=== PATIENT | male | born 1980 | race Caucasian/White ===

== ENCOUNTER 2016-07-20 16:21 | Observation (INO) ==
--- NOTE | 2016-07-20 17:47 | Emergency Department Note ---
Disposition Clinical Impression: Bilateral pneumonia Disposition: Admitted As Inpatient Condition: Fair Referrals: Inna Castillo CNP [Primary Care Provider] - Forms: ED Satisfaction Letter Time of Disposition: 18:12 ([facility]) URI/Sore Throat HPI - General Chief Complaint: ED Upper Respiratory Infection Stated Complaint: chest congestion Time Seen by Provider: 07/20/16 16:24 Source: patient Mode of arrival: ambulatory Limitations: no limitations Nursing Notes Reviewed: Yes Vital Signs Reviewed: Yes - History of Present Illness HPI Narrative: Patient states she has been having fever chills cough congestion runny nose is been running low-grade fevers has not felt well and states he has been coughing horribly at night bringing up large amounts of phlegm states they have that he gets tired at work denies any apnea no cyanosis he denies any calf pain or tenderness noted he denies any prolonged sitting he denies any recent trauma to the legs as result patient is here after being seen at the local urgent care being sent up here for evaluation for possible pulmonary emboli Pt Subjective Complaint: fever, cough, flu symptoms, nasal congestion Onset (ago): day(s) (3-4) Duration: constant Severity: moderate Severity scale (1-10): 7 Improves with: nothing Worsens with: nothing If sputum, description: yellow, green Associated symptoms: Reports: fever, chills, myalgias, rhinorrhea, nasal congestion, cough, shortness of breath, nausea. Denies: voice changes, diaphoresis, headache, sore throat, stiff neck, chest pain, abdominal pain, vomiting, diarrhea, dysuria, rash, ear pain Treatments prior to arrival: acetaminophen, ibuprofen - Related Data Home Medications Medication Instructions Recorded Confirmed Citalopram [CeleXA] 10 mg PO DAILY 03/03/15 07/20/16 Lisinopril [Zestril] 2.5 mg PO DAILY 03/03/15 07/20/16 Rosuvastatin [Crestor] 10 mg PO HS 03/03/15 07/20/16 Insulin Glargine,Hum.rec.anlog 100 unit SQ DAILY 03/23/16 07/20/16 [Lantus Solostar] Pantoprazole Sodium [Protonix] 20 mg PO DAILY 03/23/16 07/20/16 Previous Rx's Medication Instructions Recorded GuaiFENesin/Dextromethorphan 5 ml PO Q6H PRN #120 ml 06/30/16 [Robitussin Cough-Chest Dm Liq] PredniSONE 20 mg PO BID #10 tablet 07/20/16 Allergies Allergy/AdvReac Type Severity Reaction Status Date / Time azithromycin Allergy Hives Verified 07/20/16 14:53 [From Zithromax Z-Jacob] All systems ED: reviewed and negative except as stated. Constitutional: Reports: fever, weakness. Denies: chills Eyes: Denies: eye pain ENT ED: Reports: congestion. Denies: ear pain, throat pain Cardiovascular: Reports: dyspnea on exertion. Denies: chest pain, palpitations Respiratory: Reports: cough, dyspnea, wheezes, sputum production Gastrointestinal: Denies: abdominal pain, nausea Genitourinary: Denies: urgency, dysuria, frequency Musculoskeletal: Reports: back pain Integumentary: Denies: rash, abrasion Neurological: Denies: headache, weakness Psychiatric: Denies: anxiety Endocrine: Denies: fatigue Hematological/Lymphatic: Denies: easy bleeding Allergic/Immunologic: Denies: facial swelling URI PMH - Past Medical History Medical history: Reports: diabetes, GERD, hyperlipidemia, hypertension, other Surgical history: Reports: no surgical history Psychiatric history: Reports: anxiety Family history: Reports: non-contributory - Social History Smoking Status: Never smoker Alcohol use: Reports: occasionally Drug use: Reports: none Physical Exam - General Limitations: no limitations General appearance: alert, in no apparent distress - Head Head exam: atraumatic, normocephalic, normal inspection - Eye Eye exam: Present: normal appearance, PERRL, EOMI - ENT ENT exam: normal exam, normal oropharynx, mucous membranes moist, TM's normal bilaterally, normal external ear exam - Neck Neck exam: Present: normal inspection, full ROM, trachea midline - Chest Chest inspection: Present: normal inspection, symmetric chest wall rise - Respiratory Respiratory exam: Present: wheezes, prolonged expiratory phase, other (rhonci) - Cardiovascular Cardiovascular exam: Present: regular rate, normal rhythm, normal heart sounds - Abdominal Exam Abdominal exam: Present: soft, Non-Tender, normal bowel sounds. Absent: mass, pulsatile mass - Expanded Upper Extremity Exam Shoulder exam: Present: normal inspection, full ROM Arm exam: Present: normal inspection, full ROM Elbow exam: Present: normal inspection, full ROM Forearm/Wrist exam: Present: normal inspection, full ROM Hand exam: Present: normal inspection, full ROM Vascular exam: Normal: capillary refill, radial pulse - Expanded Lower Extremity Exam Hip/Pelvis exam: Present: normal inspection, full ROM Upper leg exam: Present: normal inspection, full ROM Knee exam: Present: normal inspection, full ROM Lower leg exam: Present: normal inspection, full ROM Ankle exam: Present: normal inspection, full ROM Foot/toe exam: Present: normal inspection, full ROM Neurovascular/Tendon exam: Absent: motor deficit, sensory deficit, tendon deficit Gait: observed and normal - Back Exam Back exam: Present: normal inspection, full ROM. Absent: tenderness, muscle spasm - Neurological Exam Neurological exam: Present: alert, oriented X3, CN II-XII intact - Psychiatric Psychiatric exam: Present: normal affect, normal mood - Skin Skin exam: Present: warm, dry, intact, normal color Course Course Narrative: Patient was seen and examined patient appeared to be ill flushed about the face did not appear to be feeling well as a result he was sent up throughout the possibility of a pulmonary emboli from the urgent care but he tells me he has been running fevers cough congestion thick green phlegm having trouble breathing appear to be more consistent with a pneumonia CT was performed which shows bilateral lower lobe blood cultures antibodies were started patient is admitted transferred to [facility] service of Dr. Torres stable Vital Signs Temperature 98 F 07/20/16 16:24 Pulse Rate 112 07/20/16 16:24 Respiratory Rate 16 07/20/16 16:24 Blood Pressure 125/75 07/20/16 16:24 O2 Sat by Pulse Oximetry 90 L 07/20/16 16:24 Temperature 98 F 07/20/16 16:24 Pulse Rate 112 07/20/16 16:24 Respiratory Rate 16 07/20/16 16:24 Blood Pressure 125/75 07/20/16 16:24 O2 Sat by Pulse Oximetry 90 L 07/20/16 16:24 Oxygen Delivery Oxygen Delivery Room Air Upper Respiratory Infection - Differential Diagnosis Differential Diagnosis: Likely: upper respiratory infection, other viral infection, influenza, pneumonia - Medical Records Medical records reviewed: Yes I reviewed the patient's medical records. - Radiology Data Radiology results reviewed: Yes I reviewed the patient's radiology results. ITS Impressions Chest CT 01/30/17 16:46 IMPRESSION: Bilateral lower lobe infiltrates consistent with pneumonia. No evidence of significant adenopathy. No evidence of pleural disease. D/ / Marylou Powers MD / Marylou Powers MD Interpreting Provider: Marylou Powers MD Critical Care Time Critical Care Time: No
[2016-07-20] MEDS ORDERED: 0.9 % Sodium Chloride 1,000 ML IVC SCH ×2 (18:15→19:42)
[2016-07-20] MEDS ORDERED: CefTRIAXone 1,000 MG in D5% in Water (Mini-Bag+) 100 ML IVPB ONE (18:15)
[2016-07-20] MEDS ORDERED: Ketorolac 30 MG/ML VIAL IV ONE (18:15)
[2016-07-20 18:42] LABS: INR 1.2
[2016-07-20 18:44] LABS: Activated Partial Thrombo Time 28.2 Seconds (26.0-36.0)
[2016-07-20 18:51] LABS: BUN/Creatinine Ratio 11 (6-26); Blood Urea Nitrogen 9 mg/dL (8-26); Carbon Dioxide 24 mEq/L (19-29); Chloride 99 mEq/L (98-109); Glucose 200 mg/dL (70-99); Osmolality,Calculated 286 (280-300); Potassium 4.2 mEq/L (3.5-4.5); Sodium 136 mEq/L (136-145); eGFR For African Americans > 60 (> 60); eGFR For Non-African Americans > 60 (> 60)
[2016-07-20 18:59] LABS: Basophils % 0.4 %; Eosinophils # 0.1 K/mcL (0.0-0.6); Eosinophils % 0.8 %; Hemoglobin 14.8 g/dL (12.9-16.9); Immature Granulocytes % 0.9 % (0-4); Lymphocytes # 1.4 K/mcL (0.6-4.6); Lymphocytes % 14.2 %; Mean Corpuscular HGB Conc 35.2 g/dL (31.6-35.5); Mean Corpuscular Hemoglobin 29.6 pg (28.0-33.3); Mean Platelet Volume 10.8 fL (9.4-12.4); Monocytes # 0.2 K/mcL (0.0-1.3); Monocytes % 2.4 %; Neutrophils # 7.8 K/mcL (1.6-8.9); Platelet Count 253 K/mcL (140-400); Segmented Neutrophils % 81.3 %
[2016-07-20] MEDS ORDERED: Levofloxacin 750 MG/150 ML 750 MG/150 ML BAG IVPB SCH (19:00)
[2016-07-20] MEDS ORDERED: *HR* Dextrose 50 % in Water (Syg) 50 ML SYRINGE IVP PRN (19:42)
[2016-07-20] MEDS ORDERED: Naloxone 0.4 MG/ML INJ IVP PRN (19:42)
[2016-07-20] MEDS ORDERED: HYDROcodone BIT/Homatropine LQ 5 MG/5 ML UDC PO PRN (19:42)
[2016-07-20] MEDS ORDERED: Dextrose Gel 15 GM PO PRN ×2 (19:42)
[2016-07-20] MEDS ORDERED: Acetaminophen 325 MG TABLET PO PRN (19:42)
[2016-07-20] MEDS ORDERED: D5% in Water 1,000 ML IV PRN (19:42)
[2016-07-20] MEDS ORDERED: Ibuprofen 400 MG TABLET PO PRN (19:42)
[2016-07-20] MEDS: PredniSONE 20 MG TABLET PO SCH (21:24)
[2016-07-21 05:18] LABS: INR 1.2; Prothrombin Time 13.3 Seconds (9.4-12.1)
[2016-07-21 05:21] LABS: Activated Partial Thrombo Time 27.2 Seconds (26.0-36.0)
[2016-07-21 05:38] LABS: BUN/Creatinine Ratio 16 (6-26); Blood Urea Nitrogen 17 mg/dL (8-26); Calcium 9.1 mg/dL (8.6-10.8); Carbon Dioxide 24 mEq/L (19-29); Chloride 101 mEq/L (98-109); Glucose 388 mg/dL (70-99); Osmolality,Calculated 304 (280-300); Potassium 4.2 mEq/L (3.5-4.5); Sodium 138 mEq/L (136-145); eGFR For African Americans > 60 (> 60); eGFR For Non-African Americans > 60 (> 60)
[2016-07-21 05:47] LABS: Basophils % 0.1 %; Hemoglobin 13.8 g/dL (12.9-16.9); Immature Granulocytes % 1.5 % (0-4); Lymphocytes # 1.3 K/mcL (0.6-4.6); Lymphocytes % 14.6 %; Mean Corpuscular HGB Conc 34.5 g/dL (31.6-35.5); Mean Corpuscular Hemoglobin 29.5 pg (28.0-33.3); Mean Corpuscular Volume 85.5 fL (83.0-100.0); Monocytes # 0.1 K/mcL (0.0-1.3); Monocytes % 1.4 %; Neutrophils # 7.4 K/mcL (1.6-8.9); Platelet Count 258 K/mcL (140-400); Red Blood Count 4.68 M/mcL (4.19-5.50); Red Cell Distribution Width 12.9 % (11.5-14.5); Segmented Neutrophils % 82.4 %
[2016-07-21 07:15] VITALS: BP 129/72
[2016-07-21] MEDS ORDERED: Insulin LISPRO 300 UNITS/3 ML VIAL SQ SCH (07:30)
[2016-07-21] MEDS: PredniSONE 20 MG TABLET PO SCH (08:15)
[2016-07-21] MEDS ORDERED: Insulin DETEMIR 100 UNIT/ML X5UNITS SQ SCH (09:00)
[2016-07-21] MEDS ORDERED: Levofloxacin 750 MG/150 ML 750 MG/150 ML BAG IVPB SCH ×3 (09:00)
[2016-07-21] MEDS ORDERED: *HR* Metformin 500 MG TABLET PO SCH (10:00)
--- NOTE | 2016-07-21 11:05 | Internal Med History&Physical ---
Date of Encounter: 07/21/16 Time of Encounter: 10:30 Assessment and Plan (1) Bilateral pneumonia Current visit: Yes Status: Acute He was given Rocephin and Levaquin in the emergency room. Further workup will be done as needed. Qualifiers: Pneumonia type: due to unspecified organism Lung location: lower lobe of lung Qualified Code(s): J18.9 - Pneumonia, unspecified organism Internal Medicine - H&P: HPI Chief complaint: Cough and dyspnea Admitted From: Home Plans for Post Hospital Care: Home History of present illness: Mr. Cooley is a 35 year old male who came to the emergency room stating he had cough with near-syncope related to cough which had been present for at least one and half weeks. He was seen in [place] urgent care approximately one week before that and was diagnosed with sinus infection and prescribed amoxicillin for 10 days. He felt minimally improved after taking the medication and had a persistent minimally productive cough. He went to [place] urgent care after work on July 20 was instructed to go to emergency room. Chest CT in the emergency room showed bilateral lower lobe infiltrates consistent with pneumonia. He was admitted to [facility] floor for ongoing care needs. He denies previous episodes of pneumonia. He is a lifelong nonsmoker and has no known chronic lung disease. Past Med Surg Social Fam HX - Past Medical History Medical history: diabetes, GERD, hyperlipidemia, hypertension Psychiatric history: anxiety - Past Surgical History Surgical History: appendectomy - Social History Smoking Status: Never smoker Smokeless Tobacco Status: Yes Alcohol use: occasionally Drug use: none - Family History Mother Adopted: No Living Status: Still Living Hx Family Cardiac Disorders: No Hx Family Respiratory Disorders: No Hx Family Cancer: No Hx Family GI Disorders: No Hx Family Genitourinary Disorders: No Hx Family Endocrine Disorder: Yes (Diabetes) Hx Family Musculoskeletal Disorders: No Hx Family Neuromuscular Disorders: No Hx Family Neurologic Disorders: No Hx Family HEENT Disorders: No Hx Family Autoimmune Disorders: No Hx Family Reproductive Disorders: No Hx Family Psychosocial Disorders: No Hx Family Medical Disorders: No Internal Medicine - H&P: Meds Citalopram [CeleXA] 10 mg PO QPM 03/03/15 [History] Lisinopril [Zestril] 2.5 mg PO DAILY 03/03/15 [History] Rosuvastatin [Crestor] 10 mg PO HS 03/03/15 [History] Insulin Glargine,Hum.rec.anlog [Lantus Solostar] 100 unit SQ DAILY 03/23/16 [ History] Pantoprazole Sodium [Protonix] 20 mg PO DAILY 03/23/16 [History] Metformin [Glucophage] 1,000 mg PO BIDWM 07/21/16 [History] Allergies azithromycin [From Zithromax Z-Jacob] Allergy (Verified 07/20/16 14:53) Hives All Systems PM: A 10-system review of systems was performed and is negative for pertinent findings except as documented above in the HPI. Review of systems: Gen.: He states his weight has been stable past few months Cardiovascular: He has a history of hypertension but denies CA heart failure angina DVT or pulmonary embolus Respiratory: As per history of present illness GI: He has a diagnosis of NAFLD. He denies other disorders of his liver gallbladder or exocrine pancreas : He denies hematuria dysuria or kidney stones Neurologic: He denies large distribution strokes or seizures. Endocrine: He was diagnosed with DM 2 approximately 2012. He has hyperlipidemia but denies thyroid disease Hematology/oncology: Denies blood disorders or cancers or anemia Psychiatric: He has anxiety but denies depression or other mental health issues Musk skeletal: He denies arthritis gout or other bone joint or muscle disorders. - Constitutional Vitals: Temp Pulse Resp BP Pulse Ox 98.3 F 100 18 129/72 91 L 07/21/16 07:09 07/21/16 07:09 07/21/16 07:09 07/21/16 07:09 07/21/16 07:09 Exam: Gen.: He is a well-developed overweight male who appears in minimal distress at present time. HEENT: Head is atraumatic and normocephalic. Eyes: EOMI. There is no scleral icterus. Mouth: Mucosa is moist. Neck: Supple and nontender. There is no thyromegaly or adenopathy noted. Heart: Regular without murmurs gallops or ectopics. Lungs: No wheezes or crackles are heard. There is no egophony. Abdomen: Soft and nontender. No masses or guarding are noted. Extremities: There is no cyanosis edema or clubbing noted. Dorsalis pedis and posterior tibial pulses are 1-2 over 2 bilaterally. Neurologic: Mental status: He is talkative and a good historian. Cranial nerves : Smile is symmetric. Forehead wrinkles bilaterally. Tongue protrudes midline. EOMI. Motor: There is no pronator drift. Cerebellar: Finger to nose is intact bilaterally. Skin: Warm and dry Internal Med - H&P Results - Labs CBC & Chem 7: 07/21/16 04:10 07/21/16 04:10 Labs: Short CBC 07/21/16 Range/Units 04:10 WBC 9.0 (4.3-11.1) K/mcL Hgb 13.8 (12.9-16.9) g/dL Hct 40.0 (37.5-50.1) % Plt Count 258 (140-400) K/mcL Neutrophils # 7.4 (1.6-8.9) K/mcL BMP 07/21/16 04:10 Sodium 138 Potassium 4.2 Chloride 101 Carbon Dioxide 24 BUN 17 Creatinine 1.05 Glucose 388 H Calcium 9.1
--- NOTE | 2016-07-21 11:13 | Discharge Summary ---
Date of Encounter: 07/21/16 Time of Encounter: 10:30 - Discharge Diagnosis (1) Bilateral pneumonia Priority: Primary Status: Acute Qualifiers: Pneumonia type: due to unspecified organism Lung location: lower lobe of lung Qualified Code(s): J18.9 - Pneumonia, unspecified organism - Discharge Medications Prescriptions: Lactobacillus [Culturelle] 1 each PO BID #14 cap.sprink Levofloxacin [Levaquin] 750 mg PO DAILY #7 tablet Home Medications: Citalopram [CeleXA] 10 mg PO QPM 03/03/15 [History] Lisinopril [Zestril] 2.5 mg PO DAILY 03/03/15 [History] Rosuvastatin [Crestor] 10 mg PO HS 03/03/15 [History] Insulin Glargine,Hum.rec.anlog [Lantus Solostar] 100 unit SQ DAILY 03/23/16 [ History] Pantoprazole Sodium [Protonix] 20 mg PO DAILY 03/23/16 [History] Lactobacillus [Culturelle] 1 each PO BID #14 cap.sprink 07/21/16 [Rx] Levofloxacin [Levaquin] 750 mg PO DAILY #7 tablet 07/21/16 [Rx] Metformin [Glucophage] 1,000 mg PO BIDWM 07/21/16 [History] Allergies/Adverse Reactions: Allergies azithromycin [From Zithromax Z-Jacob] Allergy (Verified 07/20/16 14:53) Hives Date of admission: 07/20/16 19:26 Primary care physician: Inna Castillo CNP - Patient Status Disposition: Home, Self-Care Condition: Fair Overall status at discharge: patient is progressing back to baseline - Discharge Instructions Follow Up With: Inna Castillo CNP [Primary Care Provider] - 1 week - Diet and Activity Activity: resume usual activities as tolerated Diet: diabetic diet Hospital course: Mr. Cooley is a 35 year old male who came to the emergency room stating he had cough with near-syncope related to cough which had been present for at least one and half weeks. He was seen in [place] urgent care approximately one week before that and was diagnosed with sinus infection and prescribed amoxicillin for 10 days. He felt minimally improved after taking the medication and had a persistent minimally productive cough. He went to [place] urgent care after work on July 20 was instructed to go to emergency room. Chest CT in the emergency room showed bilateral lower lobe infiltrates consistent with pneumonia. He was admitted to [facility] for ongoing care needs. Initial orders were written by the emergency room physician. I saw him the morning of July 21 and performed a history physical and discharge. When I saw him he stated his breathing had improved. He had no wheezing and remained afebrile during his hospital stay. He felt he was stable for discharge home to continue oral antibiotics as an outpatient which I felt was reasonable. He will follow with his primary care provider within one week. I will check room air oximetry on 6 minute walk prior to discharge. He will return to work 2016. - Time Spent with Patient Total time spent providing and/or coordinating discharge services: - Constitutional Vitals: Temp Pulse Resp BP Pulse Ox 98.3 F 100 18 129/72 91 L 07/21/16 07:09 07/21/16 07:09 07/21/16 07:09 07/21/16 07:09 07/21/16 07:09
== END 2016-07-21 12:37 | disposition home or self-care (01) ==
LOC: EMEROOPIK 16:21 → INPPIK 16:21
PROVIDERS: ADMIT Internal Medicine; ATTEND Internal Medicine